=== PATIENT | female | born 1965 | race Caucasian/White ===

== ENCOUNTER 2016-08-14 15:34 | Emergency (ER) | payer OTHER ==
[~2016-08-14] VITALS: Ht 172.7 cm; Wt 75.0 kg
[~2016-08-14 15:34] MED LIST: SULF1TAB47 PO; VIIB20TA PO
[2016-08-14 15:37] VITALS: BP 121/81; PULSE 107; RESP 15; TEMP 98.2; O2SAT 99
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
[2016-08-14] MEDS ORDERED: CYCLOBENZAPRINE HCL 10 MG TAB PO ONE (16:30)
[2016-08-14] MEDS ORDERED: SODIUM CHLOR 0.9% 1000 ML INJ 1,000 ML IV ONE (16:30)
[2016-08-14] MEDS ORDERED: KETOROLAC TROMETHAMINE 30 MG/ML (IVP) VIAL IV PUSH ONE (16:30)
[2016-08-14] MEDS ORDERED: ORPHENADRINE INJ 60 MG/2 ML AMP IV ONE (16:45)
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
[2016-08-14] MEDS ORDERED: CYCL1TAB29 PO (17:18)
[2016-08-14] MEDS ORDERED: IBUP800T23 PO (17:18)
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
[2016-08-14] MEDS ORDERED: IOHEXOL 350 MG/ML 10 ML VIAL (for RAD DIAG) IV ONE (18:17)
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
[2016-08-14 19:15] VITALS: BP 118/76
== END 2016-08-14 19:20 | disposition home or self-care (01) ==
LOC: NEPD 15:34
DX: R52 Pain, unspecified (principal); G44.319 Acute post-traumatic headache, not intractable; S16.1XXA Strain of muscle, fascia and tendon at neck level, initial encounter; S39.012A Strain of muscle, fascia and tendon of lower back, initial encounter; N83.202 Unspecified ovarian cyst, left side; V43.52XA Car driver injured in collision with other type car in traffic accident, initial encounter; Z79.899 Other long term (current) drug therapy
CPT/HCPCS: 71010; 72100; 74177; 96361; 96374; 96375; 99285; J1885; J2360; J7030; Q9967